=== PATIENT | female | born 1960 | race Caucasian/White ===

== ENCOUNTER 2016-10-14 15:55 | Emergency (ER) | payer OTHER ==
[2016-10-14 17:51] VITALS: RESP 20
[2016-10-14] MEDS ORDERED: BENZONATATE 100 MG CAP PO STA (17:56)
[2016-10-14] MEDS ORDERED: IPRATROPIUM-ALBUTEROL 3 ML NEB INHALATION STA (17:57)
[2016-10-14 18:36] LABS: Appearance,Urine Clear (Clear); Bilirubin,Urine Negative (Negative); Glucose,Urine (UA) Negative (Negative); Ketones,Urine Negative (Negative); Leukocyte Esterase,Urine Negative (Negative); Nitrite,Urine Negative (Negative); PH, Urine 5.5 (5.0-8.0); Protein,Urine Negative (Negative); Specific Gravity,Urine 1.009 (1.001-1.035); UA Billing (MACRO vs. MICRO) CHEM; Urobilinogen,Urine <2.0 mg/dL (<2.0)
[2016-10-14 18:45] LABS: ALT 29 U/L (9-52); AST 18 U/L (14-36); Alkaline Phosphatase 69 U/L (38-126); Amylase 72 U/L (30-110); Anion Gap 14 mmol/L; Blood Urea Nitrogen 16 mg/dL (7-17); Calcium 10.4 mg/dL (8.4-10.2); Carbon Dioxide 28 mmol/L (22-30); Chloride 99 mmol/L (98-107); Glucose 129 mg/dL (74-99); Non-African American GFR(MDRD) >60 (>60 ml/min/1.73 sqM); Potassium 3.8 mmol/L (3.5-5.1); Sodium 141 mmol/L (137-145); Total Bilirubin 0.4 mg/dL (0.2-1.3); Total Protein 8.3 g/dL (6.3-8.2)
--- NOTE | 2016-10-14 18:47 | ED ---
General Adult HPI - General Chief complaint: Upper Respiratory Infection Stated complaint: SOB/right flank pain Time Seen by Provider: 10/14/16 17:49 Source: patient, RN notes reviewed Mode of arrival: ambulatory Limitations: no limitations - History of Present Illness Initial comments: 56-year-old female presents to emergency room with chief complaint of cough. Patient has had this continued cough for the past 2 months. Patient states that she feels as if she is having just this continued irritation and some pressure sputum production. Patient states she's having pain to the right side of the chest. Patient states that she has not had any fever chills with this. Patient states she has had diarrhea with it as well. Patient denies any fever or chills. Patient states that she was on antibiotics as well as steroids about 2 weeks ago and her symptoms have still continued even though she finished these. Patient states she was sent here by the urgent care today for further evaluation. Patient denies any recent fever, chills, back pain, abdominal pain, nausea vomiting, numbness or tingling, dysuria or hematuria, constipation or diarrhea, headaches or visual changes, or any other current symptoms. - Related Data Home Medications Medication Instructions Recorded Confirmed Albuterol Sulfate [Proair Hfa] 1 puff INHALATION RT-Q6H PRN 10/14/16 10/14/16 Ibuprofen [Motrin] 400 mg PO Q6HR PRN 10/14/16 10/14/16 clonazePAM [KlonoPIN] 0.25 mg PO HS 10/14/16 10/14/16 traZODone HCL 150 mg PO HS 10/14/16 10/14/16 valACYclovir [Valtrex] 500 mg PO DAILY 10/14/16 10/14/16 Previous Rx's Medication Instructions Recorded Benzonatate [Tessalon Perles] 100 mg PO TID #20 cap 10/14/16 Famotidine [Pepcid] 20 mg PO BID #30 tablet 10/14/16 Promethaz-Cod 6.25-10 mg/5 ml 5 ml PO Q4HR PRN #50 ml 10/14/16 [Phenergan with Codeine] Allergies Allergy/AdvReac Type Severity Reaction Status Date / Time No Known Allergies Allergy Verified 10/14/16 18:44 Review of Systems ROS Statement: Those systems with pertinent positive or pertinent negative responses have been documented in the HPI. ROS Other: All systems not noted in ROS Statement are negative. Past Medical History Additional Past Medical History / Comment(s): chronic neck and back pain ddd History of Any Multi-Drug Resistant Organisms: None Reported Past Surgical History: Back Surgery Past Psychological History: No Psychological Hx Reported Smoking Status: Never smoker Past Alcohol Use History: None Reported Past Drug Use History: None Reported General Exam - General Exam Comments Initial Comments: General: The patient is awake and alert, in no distress, and does not appear acutely ill. Eye: Pupils are equal, round and reactive to light, extra-ocular movements are intact; there is normal conjunctiva bilaterally. No signs of icterus. Ears, nose, mouth and throat: There are moist mucous membranes and no oral lesions. Neck: The neck is supple, there is no tenderness. Cardiovascular: There is a regular rate and rhythm. No murmur, rub or gallop is appreciated. Tenderness along the right lateral aspect of the chest wall. Respiratory: Lungs are clear to auscultation, respirations are non-labored, breath sounds are equal. No wheezes, stridor, rales, or rhonchi. Gastrointestinal: Soft, non-distended, non-tender abdomen without masses or organomegaly noted. There is no rebound or guarding present. No CVA tenderness. Bowel sounds are unremarkable. Back: There is no tenderness to palpation in the midline. There is no obvious deformity. No rashes noted. Musculoskeletal: Normal ROM, no tenderness, There is no pedal edema. There is no calf tenderness or swelling. Sensation intact. Pulses equal bilaterally 2+. Neurological: CN II-XII intact, There are no obvious motor or sensory deficits. Coordination appears grossly intact. Speech is normal. Skin: Skin is warm and dry and no rashes or lesions are noted. Psychiatric: Cooperative, appropriate mood & affect, normal judgment. Limitations: no limitations Course Vital Signs 10/14/16 10/14/16 10/14/16 16:17 17:47 18:36 Temperature 98.6 F Pulse Rate 83 80 Respiratory 18 20 Rate Blood Pressure 127/82 O2 Sat by Pulse 100 Oximetry 10/14/16 18:46 Temperature Pulse Rate 84 Respiratory Rate Blood Pressure O2 Sat by Pulse Oximetry Medical Decision Making - Medical Decision Making 56 yo female presents emergency Department chief complaint of right-sided chest pain associated with the cough. At this time the patient does appear to have a right-sided costochondritis is most likely due to the cough. This time Process Help. We'll Start Patient Presents for Home As Well As Pepcid at Home As Well As Phenergan with Codeine. We Discussed Follow-Up and We Did Give Her a doctor in the area. We discussed all the patient's questions. She stated that she understood and is in agreement with the plan. The patient will be discharged home at this time. - Lab Data Result diagrams: 10/14/16 18:25 10/14/16 18:25 Lab Results 10/14/16 10/14/16 10/14/16 Range/Units 18:25 18:25 18:25 WBC 9.0 (3.8-10.6) k/uL RBC 4.73 (3.80-5.40) m/uL Hgb 15.3 (11.4-16.0) gm/dL Hct 45.7 (34.0-46.0) % MCV 96.6 (80.0-100.0) fL MCH 32.3 (25.0-35.0) pg MCHC 33.4 (31.0-37.0) g/dL RDW 12.0 (11.5-15.5) % Plt Count 168 D (150-450) k/uL Neutrophils % 68 % Lymphocytes % 25 % Monocytes % 5 % Eosinophils % 1 % Basophils % 0 % Neutrophils # 6.1 (1.3-7.7) k/uL Lymphocytes # 2.2 (1.0-4.8) k/uL Monocytes # 0.5 (0-1.0) k/uL Eosinophils # 0.1 (0-0.7) k/uL Basophils # 0.0 (0-0.2) k/uL PT 10.6 (9.0-12.0) sec INR 1.1 (<1.1) APTT 20.5 L (22.0-30.0) sec D-Dimer 0.58 (<0.60) mg/L FEU Sodium 141 (137-145) mmol/L Potassium 3.8 (3.5-5.1) mmol/L Chloride 99 (98-107) mmol/L Carbon Dioxide 28 (22-30) mmol/L Anion Gap 14 mmol/L BUN 16 (7-17) mg/dL Creatinine 0.75 (0.52-1.04) mg/dL Est GFR (MDRD) Af Amer >60 (>60 ml/min/1.73 sqM) Est GFR (MDRD) Non-Af >60 (>60 ml/min/1.73 sqM) Glucose 129 H (74-99) mg/dL Plasma Lactic Acid Bernabe (0.7-2.0) mmol/L Calcium 10.4 H (8.4-10.2) mg/dL Total Bilirubin 0.4 (0.2-1.3) mg/dL AST 18 (14-36) U/L ALT 29 (9-52) U/L Alkaline Phosphatase 69 (38-126) U/L Total Protein 8.3 H (6.3-8.2) g/dL Albumin 4.9 (3.5-5.0) g/dL Amylase 72 (30-110) U/L Lipase 152 (23-300) U/L Urine Color Urine Appearance (Clear) Urine pH (5.0-8.0) Ur Specific [place] (1.001-1.035) Urine Protein (Negative) Urine Glucose (UA) (Negative) Urine Ketones (Negative) Urine Blood (Negative) Urine Nitrate (Negative) Urine Bilirubin (Negative) Urine Urobilinogen (<2.0) mg/dL Ur Leukocyte Esterase (Negative) 10/14/16 10/14/16 Range/Units 18:25 18:25 WBC (3.8-10.6) k/uL RBC (3.80-5.40) m/uL Hgb (11.4-16.0) gm/dL Hct (34.0-46.0) % MCV (80.0-100.0) fL MCH (25.0-35.0) pg MCHC (31.0-37.0) g/dL RDW (11.5-15.5) % Plt Count (150-450) k/uL Neutrophils % % Lymphocytes % % Monocytes % % Eosinophils % % Basophils % % Neutrophils # (1.3-7.7) k/uL Lymphocytes # (1.0-4.8) k/uL Monocytes # (0-1.0) k/uL Eosinophils # (0-0.7) k/uL Basophils # (0-0.2) k/uL PT (9.0-12.0) sec INR (<1.1) APTT (22.0-30.0) sec D-Dimer (<0.60) mg/L FEU Sodium (137-145) mmol/L Potassium (3.5-5.1) mmol/L Chloride (98-107) mmol/L Carbon Dioxide (22-30) mmol/L Anion Gap mmol/L BUN (7-17) mg/dL Creatinine (0.52-1.04) mg/dL Est GFR (MDRD) Af Amer (>60 ml/min/1.73 sqM) Est GFR (MDRD) Non-Af (>60 ml/min/1.73 sqM) Glucose (74-99) mg/dL Plasma Lactic Acid Bernabe 1.3 (0.7-2.0) mmol/L Calcium (8.4-10.2) mg/dL Total Bilirubin (0.2-1.3) mg/dL AST (14-36) U/L ALT (9-52) U/L Alkaline Phosphatase (38-126) U/L Total Protein (6.3-8.2) g/dL Albumin (3.5-5.0) g/dL Amylase (30-110) U/L Lipase (23-300) U/L Urine Color Light Yellow Urine Appearance Clear (Clear) Urine pH 5.5 (5.0-8.0) Ur Specific [place] 1.009 (1.001-1.035) Urine Protein Negative (Negative) Urine Glucose (UA) Negative (Negative) Urine Ketones Negative (Negative) Urine Blood Negative (Negative) Urine Nitrate Negative (Negative) Urine Bilirubin Negative (Negative) Urine Urobilinogen <2.0 (<2.0) mg/dL Ur Leukocyte Esterase Negative (Negative) 10/14/16 19:36 normal sinus rhythm 76 bpm, normal axis, no atopy, no S-T depressions or elevations, Disposition Clinical Impression: Cough, Costochondral chest pain Disposition: HOME SELF-CARE Condition: Stable Instructions: Costochondritis (ED) Additional Instructions: Please use medication as discussed. Please follow up with family doctor if symptoms have not improved over the next two days. Please return to the emergency room if your symptoms increase or worsen or for any other concerns. Prescriptions: Benzonatate [Tessalon Perles] 100 mg PO TID #20 cap Famotidine [Pepcid] 20 mg PO BID #30 tablet Promethaz-Cod 6.25-10 mg/5 ml [Phenergan with Codeine] 5 ml PO Q4HR PRN #50 ml PRN Reason: Cough Referrals: Celio Khan MD [Primary Care Provider] - 1-2 days Brittany Weston MD [STAFF PHYSICIAN] - 1-2 days Time of Disposition: 19:37
[2016-10-14 19:04] LABS: INR 1.1 (<1.1); Partial Thromboplastin Time 20.5 sec (22.0-30.0); Prothrombin Time 10.6 sec (9.0-12.0)
--- NOTE | 2016-10-14 19:05 | XR ---
EXAMINATION TYPE: XR chest 2V DATE OF EXAM: 10/14/2016 6:57 PM COMPARISON: 09/07/16 HISTORY: Chest pain TECHNIQUE: Frontal and lateral views of the chest are obtained. FINDINGS: There is no focal air space opacity. No evidence for pnuemothorax.No pleural effusion. The cardiac silhouette size is within normal limits. The osseous structures are grossly intact. IMPRESSION: 1. No acute cardiopulmonary process.
[2016-10-14 19:24] LABS: Basophils % (A) 0 %; CH 32.9; CHCM 34.2; Eosinophils # (A) 0.1 k/uL (0-0.7); Eosinophils % (A) 1 %; HCT 45.7 % (34.0-46.0); HDW 2.42; HGB 15.3 gm/dL (11.4-16.0); Luc # (Auto) 0.13; Luc % (Auto) 1; Lymphocytes # (A) 2.2 k/uL (1.0-4.8); Lymphocytes % (A) 25 %; MCH 32.3 pg (25.0-35.0); MCHC 33.4 g/dL (31.0-37.0); MCV 96.6 fL (80.0-100.0); Mean Platelet Volume 8.4; Monocytes # (A) 0.5 k/uL (0-1.0); Monocytes % (A) 5 %; Neutrophils # (A) 6.1 k/uL (1.3-7.7); Neutrophils % (A) 68 %; RBC 4.73 m/uL (3.80-5.40); WBC (Perox) 9.76
[2016-10-14 20:02] VITALS: BP 112/56; PULSE 88; TEMP 97.7
== END 2016-10-14 20:02 | disposition home or self-care (01) ==
LOC: EC 15:55
DX: R05 Cough (principal); R07.1 Chest pain on breathing; R19.7 Diarrhea, unspecified; G89.29 Other chronic pain; M54.2 Cervicalgia; M54.9 Dorsalgia, unspecified; R07.9 Chest pain, unspecified; Z79.899 Other long term (current) drug therapy; R06.02 Shortness of breath; R10.9 Unspecified abdominal pain
CPT/HCPCS: 36415; 71020; 80053; 81003; 82150; 83605; 83690; 85025; 85379; 85610; 85730; 87040; 87086; 93005; 94640; 99284

== ENCOUNTER → 2016-10-26 | Outpatient (CLI) | payer OTHER ==
--- NOTE | 2016-10-26 15:20 | CT ---
EXAMINATION TYPE: CT chest wo con DATE OF EXAM: 10/26/2016 2:57 PM COMPARISON: NONE HISTORY: Cough x 2 1/2 months. Right lower chest pain. CT DLP: 503.[address] of the chest was performed with lung and mediastinal window settings submitted. The la ck of contrast limits evaluation of the vascular, mediastinal and parenchymal structures including th e upper abdomen. LUNGS: The lungs are clear and free of infiltrate. No atelectasis. No pulmonary nodule or mass is de tected. No pleural effusion. No CT evidence of interstitial lung disease. MEDIASTINUM/NILESH: Thoracic aorta is of normal caliber with limited evaluation given lack of contrast . The heart is not enlarged. No evidence for mediastinal mass. No lymph nodes greater than 1cm. UPPER ABDOMEN: No significant abnormality is seen. OTHER: Bilateral breast implants are intact. No evidence for displaced rib fracture. IMPRESSION: 1. No significant abnormality.
== END | disposition home or self-care (01) ==
LOC: RADCTMAIN 14:39
PROVIDERS: ATTEND Family Medicine
DX: R05 Cough (principal)
CPT/HCPCS: 71250

== ENCOUNTER → 2018-07-13 | Outpatient (CLI) | payer MEDICARE ==
--- NOTE | 2018-07-13 11:44 | FL ---
EXAMINATION TYPE: FL barium swallow DATE OF EXAM: 07/13/2018 CLINICAL HISTORY: Dysphagia. Feeling something getting stuck in throat for one year per patient. TECHNIQUE: A double contrast esophagram is performed utilizing air and barium. A total of 53 second s of fluoroscopic time was utilized during procedure. 41 spot images are saved during procedure. COMPARISON: CT chest October 26, 2016. MRI cervical spine May 27, 2018 FINDINGS: The esophagus shows normal motility and emptying into the stomach. No evidence of hiatal h ernia or stricture noted. No diverticulum is present. No significant gastroesophageal reflux was seen during real time performance of this study. IMPRESSION: No significant abnormality is seen to account for patient's symptoms.
== END | disposition home or self-care (01) ==
LOC: RADFLWHC 10:53
PROVIDERS: ATTEND Otolaryngology
DX: R13.10 Dysphagia, unspecified (principal)
CPT/HCPCS: 74220

== ENCOUNTER → 2018-07-20 | Outpatient (CLI) | payer MEDICARE ==
--- NOTE | 2018-07-20 14:05 | US ---
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 difficulty swallowing for years, h/o enlarged node on le ft neck per patient, assess nodes today Bilateral soft tissue scan of the neck. Largest node seen bilaterally was on the left = 1.3 x 0.7 x 0 .3cm with fatty hilum and mild vascularity seen. IMPRESSION: Benign-appearing lymph nodes noted along the anterior neck bilaterally, previously identified enlarge d node left neck has decreased in size in the interval
--- NOTE | 2018-07-28 11:27 | MM ---
Reason for exam: screening (asymptomatic). Last mammogram was performed 1 year and 2 months ago. History: Patient is postmenopausal. Saline implants in both breasts, 2006. Benign excisional biopsy of the right breast, 1997. Physical Findings: A clinical breast exam by your physician is recommended on an annual basis and results should be correlated with mammographic findings. MG 3D Screen Mammo Imp/Cad Bilateral CC, MLO, and ID view(s) were taken. Prior study comparison: May 26, 2017, mammogram, performed at [facility]. February 16, 2013, mammogram, performed at [facility]. The breast tissue is extremely dense which could obscure a lesion on mammography. Stable benign calcifications. Bilateral implant are intact. ASSESSMENT: Benign, BI-RAD 2 RECOMMENDATION: Routine screening mammogram of both breasts in 1 year.
== END | disposition home or self-care (01) ==
LOC: RADUSWWP 09:00
PROVIDERS: ATTEND Family Medicine
DX: Z12.31 Encounter for screening mammogram for malignant neoplasm of breast (principal); F45.8 Other somatoform disorders
CPT/HCPCS: 76536; 77063; 77067

== ENCOUNTER → 2019-07-31 | Outpatient (CLI) | payer MEDICARE ==
--- NOTE | 2019-07-31 17:00 | MR ---
MRI CERVICAL SPINE: CLINICAL HISTORY: Osteoarthritis and chronic pain per order. Headaches with neck pain for over 15 yea rs causing pain or weakness into both arms and fingers per patient. TECHNIQUE: Multiplanar, multisequence imaging of the cervical spine is performed without and with IV contrast, 5.5 cc of gadolinium was given intravenously. COMPARISON: MRI cervical spine May 27, 2018. FINDINGS: Sagittal images of the cervical spine show the craniocervical junction to remain within nor mal limits. The cervical and upper thoracic spinal cord remains normal in caliber and signal. Verte bral alignment is stable. There is grade 1 anterolisthesis of C3 on C4 and grade 1 retrolisthesis of C4 on C5 and C5 on C6. The vertebral body heights remain normal. Moderate disc space narrowing C4-C 5 and C5-C6 levels is redemonstrated. Heterogeneous Modic type II endplate changes centered posterior C6-C7 level are again seen. No suspicious postcontrast enhancement. Axial images show the C2-C3 level to remain within normal limits. Axial images at C3-C4 level redemonstrated right foraminal spur disc complex causing asymmetric moder ate right-sided neural foraminal narrowing axial image 35 and sagittal image 10, this is not signific antly changed in retrospect from prior study. Axial images at C4-C5 level show posterior lobulated disc protrusion and right foraminal spur disc co mplex effacing anterior thecal sac and causing asymmetric moderate right-sided neural foraminal narro wing. No significant change from prior. Axial images at C5-C6 level show lobulated posterior and right foraminal disc protrusion with spurrin g effacing anterior thecal sac and causing advanced right-sided neural foraminal narrowing axial imag e 21 not significant changed from prior. Axial images at C6-C7 show mild broad disc bulge minimally effacing anterior thecal sac with mild felipe ateral neural foraminal narrowing, no significant change from prior. Axial images at C7-T1 level are within normal limits. IMPRESSION: Multilevel level spondylolisthesis and degenerative changes most prominent mid cervical l evels as detailed above. No significant change or progression from prior MRI noted.
== END | disposition home or self-care (01) ==
LOC: RADMRIMAIN 15:28
PROVIDERS: ATTEND Internal Medicine
DX: M43.12 Spondylolisthesis, cervical region (principal); G89.29 Other chronic pain
CPT/HCPCS: 72156; A9585

== ENCOUNTER → 2019-12-15 | Outpatient (CLI) | payer MEDICARE ==
--- NOTE | 2019-12-19 08:14 | USB ---
Reason for exam: additional evaluation requested from abnormal screening. History: Patient is postmenopausal. Saline implants in both breasts, 2007. Benign excisional biopsy of the right breast, 1997. Physical Findings: Nurse Summary: 1cm movable 2 o'clock (nurse terence). US Breast Workup Limited LT Left limited breast ultrasound including focal area of concern, retroareolar and axilla demonstrates no cystic or solid lesion seen. These results were verbally communicated with the patient and result sheet given to the patient on 12/15/19. ASSESSMENT: Negative, BI-RAD 1 RECOMMENDATION: Routine screening mammogram of both breasts. Manage on a clinical basis with regard to nipple inversion.
== END | disposition home or self-care (01) ==
LOC: RADUSWWP 13:07
PROVIDERS: ATTEND Internal Medicine
DX: R92.8 Other abnormal and inconclusive findings on diagnostic imaging of breast (principal)

== ENCOUNTER → 2020-04-19 | Outpatient (CLI) | payer MEDICARE ==
--- NOTE | 2020-04-19 17:49 | CT ---
EXAMINATION TYPE: CT sinus wo con DATE OF EXAM: 04/19/2020 COMPARISON: None HISTORY: Chronic sinusitis, headache CT DLP: 566 mGycm. Automated Exposure Control for Dose Reduction was Utilized. TECHNIQUE: CT scan of the sinuses is performed without contrast, axial images are obtained, coronal r eformatted images are also reviewed. FINDINGS: The frontal and ethmoid sinuses are well-aerated. There is small mucosal polyp versus reten tion cyst of the right sphenoid sinus. There is mucosal obstruction of the bilateral sphenoid ostia. There is mucosal thickening of the bilateral maxillary sinuses, left greater than right. There is muc osal occlusion of the bilateral frontoethmoidal recesses, with narrowing on the left. The ostiomeatal complex is patent bilaterally on the coronal images. There is rightward deviation of the anterior bony septum Visualized portion of mastoid air cells show no abnormal opacification. The globes are symmetric felipe aterally. IMPRESSION: 1. Paranasal sinus disease as above. 2. Rightward deviation of the anterior bony septum.
== END | disposition home or self-care (01) ==
LOC: RADCTMAIN 14:03
PROVIDERS: ATTEND Otolaryngology
DX: J32.9 Chronic sinusitis, unspecified (principal); J34.2 Deviated nasal septum
CPT/HCPCS: 70486

== ENCOUNTER → 2020-04-30 | Outpatient (CLI) | payer MEDICARE | END | disposition home or self-care (01) | LOC: LABWHC1 14:27 | PROVIDERS: ATTEND Otolaryngology | DX: J30.89 Other allergic rhinitis (principal) | CPT/HCPCS: 36415 ==

== ENCOUNTER 2020-08-23 15:09 | Emergency (ER) | payer MEDICARE ==
[2020-08-23 15:17] VITALS: TEMP 98.5
--- NOTE | 2020-08-23 15:44 | ED ---
Chest Pain HPI - General Chief Complaint: Chest Pain Stated Complaint: +COVID, Diff Breathing Time Seen by Provider: 08/23/20 15:22 Source: patient Mode of arrival: wheelchair Limitations: no limitations - History of Present Illness Initial Comments: 60-year-old male presenting to the emergency department with a chief complaint of chest pressure. Patient states 7 days ago she was diagnosed with Covid and since then she has continued to develop generalized body aches with URI symptoms. Patient states yesterday she also started to feel some chest pr essure/heaviness and cause her to have shortness of breath. Patient reports feeling like she cannot take a full deep breath. She also reports a productive cough with white sputum production. She does report chills but no fevers. Denies nausea vomiting diarrhea. Denies any abdominal pain. Denies any headaches. Denies any loss of taste or smell. - Related Data Home Medications Medication Instructions Recorded Confirmed Albuterol Sulfate [Proair Hfa] 1 puff INHALATION RT-Q6H PRN 10/14/16 08/23/20 Budesonide/Formoterol Fumarate 2 puff INHALATION RT-QID PRN 08/23/20 08/23/20 [Symbicort 160-4.5 Mcg Inhaler] clonazePAM 1 mg PO HS 08/23/20 08/23/20 traZODone HCL [Desyrel] 150 mg PO HS 08/23/20 08/23/20 Allergies Allergy/AdvReac Type Severity Reaction Status Date / Time almond Allergy Unknown Verified 08/23/20 18:48 egg Allergy Unknown Verified 08/23/20 18:48 mustard Allergy Unknown Verified 08/23/20 18:48 Review of Systems ROS Statement: Those systems with pertinent positive or pertinent negative responses have been documented in the HPI. ROS Other: All systems not noted in ROS Statement are negative. EKG Findings - EKG Comments: EKG Findings:: Sinus rhythm. Ventricular rate 73, TX 138, QRS 78, QTC 449. Past Medical History Additional Past Medical History / Comment(s): chronic neck and back pain ddd, covid History of Any Multi-Drug Resistant Organisms: None Reported Past Surgical History: Back Surgery Past Psychological History: No Psychological Hx Reported Smoking Status: Never smoker Past Alcohol Use History: None Reported Past Drug Use History: None Reported General Exam Limitations: no limitations General appearance: alert, in no apparent distress Head exam: Present: atraumatic, normocephalic, normal inspection Eye exam: Present: normal appearance, PERRL, EOMI Pupils: Present: normal accommodation ENT exam: Present: normal exam, normal oropharynx, mucous membranes moist, TM's normal bilaterally, normal external ear exam Neck exam: Present: normal inspection, full ROM. Absent: tenderness Respiratory exam: Present: normal lung sounds bilaterally. Absent: respiratory distress, wheezes, rales, rhonchi, stridor, chest wall tenderness, accessory muscle use, decreased breath sounds, prolonged expiratory Cardiovascular Exam: Present: regular rate, normal rhythm, normal heart sounds. Absent: systolic murmur, diastolic murmur GI/Abdominal exam: Present: soft. Absent: distended, tenderness, guarding, rebound Extremities exam: Present: normal inspection, full ROM, normal capillary refill. Absent: tenderness, pedal edema, joint swelling, calf tenderness Back exam: Present: normal inspection, full ROM. Absent: tenderness, CVA te nderness (R), CVA tenderness (L), muscle spasm, paraspinal tenderness, vertebral tenderness Neurological exam: Present: alert, oriented X3, normal gait Psychiatric exam: Present: normal affect, normal mood. Absent: depressed, agitated Skin exam: Present: warm, dry, intact, normal color Course Vital Signs 08/23/20 08/23/20 08/23/20 15:14 18:00 18:56 Temperature 98.5 F Pulse Rate 78 79 74 Respiratory 18 16 16 Rate Blood Pressure 119/77 113/84 123/71 O2 Sat by Pulse 100 96 97 Oximetry Chest Pain MDM - MDM 60-year-old female presenting to the emergency department with a chief complaint shortness of breath. Patient is currently Covid positive. Physical examination reveals mild shortness of breath but her vitals are remaining stable. Oxygen saturation is above 95%. CBC CMP and coags within normal limits. Initial troponin is negative. D-dimer is also negative. Chest x-ray reveals no acute processes. She denies chest pain. Patient was advised to follow with the primary care physician. Strict return parameters were thoroughly discussed the patient is understanding and agreeable. Case discussed with physician. Disposition Clinical Impression: Shortness of breath Disposition: HOME SELF-CARE Condition: Stable Instructions (If sedation given, give patient instructions): Chest Pain (ED) Additional Instructions: Follow-up with her primary care physician. Continue using your inhalers. Take Tylenol if she developed a fever. Self isolate. Return to emergency department if symptoms worsen. Is patient prescribed a controlled substance at d/c from ED?: No Referrals: Kris Odell MD [Primary Care Provider] - 1-2 days Time of Disposition: 18:36
[2020-08-23 16:33] LABS: Basophils # (A) 0.1 k/uL (0-0.2); Basophils % (A) 1 %; Eosinophils # (A) 0.1 k/uL (0-0.7); Eosinophils % (A) 3 %; HCT 39.1 % (34.0-46.0); HGB 13.7 gm/dL (11.4-16.0); Lymphocytes # (A) 1.5 k/uL (1.0-4.8); Lymphocytes % (A) 33 %; MCH 32.3 pg (25.0-35.0); MCHC 35.1 g/dL (31.0-37.0); MCV 92.2 fL (80.0-100.0); Mean Platelet Volume 7.2; Monocytes # (A) 0.2 k/uL (0-1.0); Monocytes % (A) 5 %; Neutrophils # (A) 2.5 k/uL (1.3-7.7); Neutrophils % (A) 56 %; Platelet Count 216 k/uL (150-450); RBC 4.24 m/uL (3.80-5.40); RDW 11.5 % (11.5-15.5); WBC 4.5 k/uL (3.8-10.6)
[2020-08-23 16:46] LABS: ALT 17 U/L (4-34); AST 23 U/L (14-36); African American GFR (CKD) 79 (>60 ml/min/1.73 sqM); Alkaline Phosphatase 54 U/L (38-126); Anion Gap 8 mmol/L; Blood Urea Nitrogen 13 mg/dL (7-17); Carbon Dioxide 29 mmol/L (22-30); Chloride 102 mmol/L (98-107); Glucose 98 mg/dL (74-99); LDH 417 U/L (313-618); Non-African American GFR(CKD) 68 (>60 ml/min/1.73 sqM); Sodium 139 mmol/L (137-145); Total Bilirubin 0.3 mg/dL (0.2-1.3); Total Protein 8.3 g/dL (6.3-8.2)
--- NOTE | 2020-08-23 16:54 | XR ---
EXAMINATION TYPE: XR chest 1V portable DATE OF EXAM: 08/23/2020 COMPARISON: 10/14/2016 HISTORY: Chest pain TECHNIQUE: FINDINGS: Heart and mediastinum are normal. Lungs are clear. Diaphragm is normal. Bony thorax is inta ct. There is mild pulmonary hyperinflation. There are chest leads. IMPRESSION: There is probably some COPD. No acute lung disease. There is clearing of the mild subsegm ental atelectasis left lung base compared to old exam.
[2020-08-23 17:02] LABS: D-Dimer 0.49 mg/L FEU (<0.60)
[2020-08-23 17:04] LABS: Partial Thromboplastin Time 20.5 sec (22.0-30.0)
[2020-08-23 17:12] LABS: C Reactive Protein <5.0 mg/L (<10.0)
[2020-08-23] MEDS ORDERED: SODIUM CHLORIDE 0.9% 1,000 ML IV STA (17:46)
[2020-08-23 18:01] VITALS: RESP 16
[2020-08-23 18:57] VITALS: BP 123/71; PULSE 74
[2020-08-24 00:09] LABS: Ferritin 132.5 ng/mL (10.0-291.0)
== END 2020-08-23 18:56 | disposition home or self-care (01) ==
LOC: EC 15:09
DX: U07.1 COVID-19 (principal); G89.29 Other chronic pain; M54.2 Cervicalgia; M54.9 Dorsalgia, unspecified; Z79.899 Other long term (current) drug therapy; Z79.51 Long term (current) use of inhaled steroids; Z91.018 Allergy to other foods; Z91.012 Allergy to eggs
CPT/HCPCS: 36415; 71045; 80053; 82728; 83605; 83615; 83735; 84145; 84484; 85025; 85379; 85610; 85730; 86140; 87040; 93005; 99285

== ENCOUNTER → 2021-03-25 | Outpatient (CLI) | payer MEDICARE ==
--- NOTE | 2021-03-26 09:39 | MM ---
Reason for exam: clinical finding. Last mammogram was performed 1 year and 4 months ago. History: Patient is postmenopausal. Saline implants in both breasts, 2006. Benign excisional biopsy of the right breast, 1997. Indicated problem(s): lump or thickening in the left breast. Physical Findings: Nurse Summary: 0.5cm nodule in the left breast at 3 o'clock (nurse mj). MG 3D Diag Mammo Imp W/Cad CAMILA Bilateral CC, MLO, and ID view(s) were taken. Prior study comparison: December 05, 2019, bilateral MG 3d screen mammo imp/cad. July 20, 2018, bilateral MG 3d screen mammo imp/cad. The breast tissue is extremely dense which could obscure a lesion on mammography. Left lump at site of oil cyst. Inverted nipple left breast. Benign calcifications. Bilateral retropectoral saline implants with multiple folds relatively stable. Ultrasound of left breast recommended. These results were verbally communicated with the patient and result sheet given to the patient on 03/25/21. ASSESSMENT: Incomplete: need additional imaging evaluation, BI-RAD 0 RECOMMENDATION: Ultrasound of the left breast.
--- NOTE | 2021-03-26 09:41 | USB ---
Reason for exam: additional evaluation requested from abnormal screening. History: Patient is postmenopausal. Saline implants in both breasts, 2007. Benign excisional biopsy of the right breast, 1997. US Breast Limited LT Left limited breast ultrasound including focal area of concern, retroareolar and axilla demonstrates a 8 x 8 x 8mm oval, cystic oil cyst at 3 o'clock BB. Benign. Left retroareolar at site of inversion, no cyst, mass or ductal dilation. These results were verbally communicated with the patient and result sheet given to the patient on 03/25/21. ASSESSMENT: Benign, BI-RAD 2 RECOMMENDATION: Routine screening mammogram of both breasts in 1 year.
== END | disposition home or self-care (01) ==
LOC: RADMAMWWP 15:04
PROVIDERS: ATTEND Obstetrics & Gynecology
DX: N60.02 Solitary cyst of left breast (principal); N63.20 Unspecified lump in the left breast, unspecified quadrant; Z78.0 Asymptomatic menopausal state
CPT/HCPCS: 77066; 76642; G0279; 77062

== ENCOUNTER 2022-01-27 11:27 | Emergency (ER) | payer MEDICARE ==
[2022-01-27] MEDS ORDERED: diphenhydrAMINE 50 MG/ML 1 ML VIAL IVP STA (13:12)
[2022-01-27] MEDS ORDERED: SODIUM CHLORIDE 0.9% 1,000 ML IV ONE (13:12)
[2022-01-27] MEDS ORDERED: METOCLOPRAMIDE 5 MG/ML 2 ML VIAL IVP STA (13:12)
--- NOTE | 2022-01-27 13:22 | ED ---
General Adult HPI - General Chief complaint: Headache Stated complaint: neuro issue Time Seen by Provider: 01/27/22 12:55 Source: patient, RN notes reviewed, old records reviewed Mode of arrival: wheelchair Limitations: no limitations - History of Present Illness Initial comments: This is a 61-year-old female presents emergency Department complaining of a four-day headache. Patient states it's on the right side of her head and even goes into her jaw little bit. Patient states she has had migraines in the past but this is a little bit worse and atypical. Patient states she's had no nausea but she is photophobic. Patient denies any numbness or focal weakness. Patient denies any slurred speech or facial droop. Patient states she feels a little dizzy but she's not having issues walking. Patient states [id number] medications have not helped. - Related Data Home Medications Medication Instructions Recorded Confirmed clonazePAM 1 mg PO HS 08/23/20 01/27/22 Levocetirizine Dihydrochloride 5 mg PO HS 01/27/22 01/27/22 [Xyzal] traZODone HCL [Desyrel] 200 mg PO HS 01/27/22 01/27/22 Allergies Allergy/AdvReac Type Severity Reaction Status Date / Time almond Allergy Unknown Verified 01/27/22 13:37 egg Allergy Unknown Verified 01/27/22 13:37 gluten Allergy Unknown Verified 01/27/22 13:37 mustard Allergy Unknown Verified 01/27/22 13:37 nickel Allergy Unknown Verified 01/27/22 13:37 Review of Systems ROS Statement: Those systems with pertinent positive or pertinent negative responses have been documented in the HPI. ROS Other: All systems not noted in ROS Statement are negative. Past Medical History Additional Past Medical History / Comment(s): chronic neck and back pain ddd, covid History of Any Multi-Drug Resistant Organisms: None Reported Past Surgical History: Back Surgery Past Psychological History: No Psychological Hx Reported Smoking Status: Never smoker Past Alcohol Use History: None Reported Past Drug Use History: None Reported General Exam - General Exam Comments Initial Comments: GENERAL: Patient is well-developed and well-nourished. Patient is nontoxic and well- hydrated and is in mild distress. ENT: Neck is soft and supple. No significant lymphadenopathy is noted. Oropharynx is clear. Moist mucous membranes. Neck has full range of motion without eliciting any pain. EYES: The sclera were anicteric and conjunctiva were pink and moist. Extraocular movements were intact and pupils were equal round and reactive to light. Eyelids were unremarkable. PULMONARY: Unlabored respirations. Good breath sounds bilaterally. No audible rales rhonchi or wheezing was noted. CARDIOVASCULAR: There is a regular rate and rhythm without any murmurs gallops or rubs. ABDOMEN: Soft and nontender with normal bowel sounds. SKIN: Skin is clear with no lesions or rashes and otherwise unremarkable. NEUROLOGIC: Patient is alert and oriented x3. Cranial nerves II through XII are grossly int act. Motor and sensory are also intact. Normal speech, volume and content. Symmetrical smile. Patient has an NIH of 0 MUSCULOSKELETAL: Normal extremities with adequate strength and full range of motion. No lower extremity swelling or edema. No calf tenderness. LYMPHATICS: No significant lymphadenopathy is noted PSYCHIATRIC: Normal psychiatric evaluation. Limitations: no limitations Course Vital Signs 01/27/22 01/27/22 11:28 15:07 Temperature 97.9 F 97.7 F Pulse Rate 82 58 L Respiratory 16 18 Rate Blood Pressure 110/71 107/60 O2 Sat by Pulse 97 100 Oximetry Medical Decision Making - Medical Decision Making EKG shows sinus rhythm at 64 bpm OH interval is 131 QRS is 86 QT interval 386 QTC is 396. Patient's EKG shows no ST segment elevation there is some slight ST segment depression in the inferior leads. In precordial leads V3 V4 [address] of the brain showed no acute abnormality. Patient received Benadryl and Reglan and after the CAT scan Toradol. Patient was feeling considerably better stated she was hungry and wanted to be discharged home so she could eat. - Lab Data Result diagrams: 01/27/22 13:45 01/27/22 13:45 Lab Results 01/27/22 01/27/22 01/27/22 Range/Units 13:45 13:45 13:45 WBC 6.6 (3.8-10.6) k/uL RBC 4.31 (3.80-5.40) m/uL Hgb 13.8 (11.4-16.0) gm/dL Hct 41.9 (34.0-46.0) % MCV 97.1 (80.0-100.0) fL MCH 32.0 (25.0-35.0) pg MCHC 32.9 (31.0-37.0) g/dL RDW 11.8 (11.5-15.5) % Plt Count 272 (150-450) k/uL MPV 6.8 Neutrophils % 66 % Lymphocytes % 25 % Monocytes % 5 % Eosinophils % 2 % Basophils % 1 % Neutrophils # 4.4 (1.3-7.7) k/uL Lymphocytes # 1.6 (1.0-4.8) k/uL Monocytes # 0.3 (0-1.0) k/uL Eosinophils # 0.1 (0-0.7) k/uL Basophils # 0.0 (0-0.2) k/uL Sodium 139 (137-145) mmol/L Potassium 3.8 (3.5-5.1) mmol/L Chloride 101 (98-107) mmol/L Carbon Dioxide 31 H (22-30) mmol/L Anion Gap 7 mmol/L BUN 13 (7-17) mg/dL Creatinine 0.68 (0.52-1.04) mg/dL Est GFR (CKD-EPI)AfAm >90 (>60 ml/min/1.73 sqM) Est GFR (CKD-EPI)NonAf >90 (>60 ml/min/1.73 sqM) Glucose 92 (74-99) mg/dL Calcium 9.5 (8.4-10.2) mg/dL Magnesium 1.9 (1.6-2.3) mg/dL Total Bilirubin 0.6 (0.2-1.3) mg/dL AST 23 (14-36) U/L ALT 18 (4-34) U/L Alkaline Phosphatase 48 (38-126) U/L Troponin I <0.012 (0.000-0.034) ng/mL Total Protein 7.7 (6.3-8.2) g/dL Albumin 4.4 (3.5-5.0) g/dL Coronavirus (PCR) (Not Detectd) 01/27/22 Range/Units 14:21 WBC (3.8-10.6) k/uL RBC (3.80-5.40) m/uL Hgb (11.4-16.0) gm/dL Hct (34.0-46.0) % MCV (80.0-100.0) fL MCH (25.0-35.0) pg MCHC (31.0-37.0) g/dL RDW (11.5-15.5) % Plt Count (150-450) k/uL MPV Neutrophils % % Lymphocytes % % Monocytes % % Eosinophils % % Basophils % % Neutrophils # (1.3-7.7) k/uL Lymphocytes # (1.0-4.8) k/uL Monocytes # (0-1.0) k/uL Eosinophils # (0-0.7) k/uL Basophils # (0-0.2) k/uL Sodium (137-145) mmol/L Potassium (3.5-5.1) mmol/L Chloride (98-107) mmol/L Carbon Dioxide (22-30) mmol/L Anion Gap mmol/L BUN (7-17) mg/dL Creatinine (0.52-1.04) mg/dL Est GFR (CKD-EPI)AfAm (>60 ml/min/1.73 sqM) Est GFR (CKD-EPI)NonAf (>60 ml/min/1.73 sqM) Glucose (74-99) mg/dL Calcium (8.4-10.2) mg/dL Magnesium (1.6-2.3) mg/dL Total Bilirubin (0.2-1.3) mg/dL AST (14-36) U/L ALT (4-34) U/L Alkaline Phosphatase (38-126) U/L Troponin I (0.000-0.034) ng/mL Total Protein (6.3-8.2) g/dL Albumin (3.5-5.0) g/dL Coronavirus (PCR) Not Detected (Not Detectd) Disposition Clinical Impression: Headache Disposition: HOME SELF-CARE Instructions (If sedation given, give patient instructions): Acute Headache (ED) Is patient prescribed a controlled substance at d/c from ED?: No Referrals: Kris Odell MD [Primary Care Provider] - 1-2 days Time of Disposition: 15:35
[2022-01-27 13:48] LABS: Basophils % (A) 1 %; Eosinophils # (A) 0.1 k/uL (0-0.7); Eosinophils % (A) 2 %; HCT 41.9 % (34.0-46.0); HGB 13.8 gm/dL (11.4-16.0); Lymphocytes # (A) 1.6 k/uL (1.0-4.8); Lymphocytes % (A) 25 %; MCHC 32.9 g/dL (31.0-37.0); MCV 97.1 fL (80.0-100.0); Mean Platelet Volume 6.8; Monocytes # (A) 0.3 k/uL (0-1.0); Monocytes % (A) 5 %; Neutrophils # (A) 4.4 k/uL (1.3-7.7); Neutrophils % (A) 66 %; Platelet Count 272 k/uL (150-450); RBC 4.31 m/uL (3.80-5.40); RDW 11.8 % (11.5-15.5); WBC 6.6 k/uL (3.8-10.6)
[2022-01-27 13:57] LABS: ALT 18 U/L (4-34); AST 23 U/L (14-36); African American GFR (CKD) >90 (>60 ml/min/1.73 sqM); Albumin 4.4 g/dL (3.5-5.0); Alkaline Phosphatase 48 U/L (38-126); Anion Gap 7 mmol/L; Blood Urea Nitrogen 13 mg/dL (7-17); Calcium 9.5 mg/dL (8.4-10.2); Carbon Dioxide 31 mmol/L (22-30); Chloride 101 mmol/L (98-107); Glucose 92 mg/dL (74-99); Magnesium 1.9 mg/dL (1.6-2.3); Non-African American GFR(CKD) >90 (>60 ml/min/1.73 sqM); Potassium 3.8 mmol/L (3.5-5.1); Sodium 139 mmol/L (137-145); Total Bilirubin 0.6 mg/dL (0.2-1.3); Total Protein 7.7 g/dL (6.3-8.2)
--- NOTE | 2022-01-27 13:58 | CT ---
EXAMINATION TYPE: CT brain wo con DATE OF EXAM: 01/27/2022 COMPARISON: None HISTORY: Headache. CT DLP: 1096.4 mGycm Automated exposure control for dose reduction was used. FINDINGS: Mild degenerative change of the greater frontal lobe component. No acute intracranial hemorrhage or m ass effect. No midline shift. Calvarium intact. Orbits symmetric. Sinuses clear. Craniocervical junction maintained. Sella turcica has a normal appea abby. IMPRESSION: NO ACUTE PROCESS IF SYMPTOMS PERSIST CONSIDER MRI.
[2022-01-27] MEDS ORDERED: KETOROLAC 15 MG/ML 1 ML VIAL IVP STA (14:06)
[2022-01-27 15:09] VITALS: BP 107/60; PULSE 58; RESP 18; TEMP 97.7
== END 2022-01-27 15:48 | disposition home or self-care (01) ==
LOC: EC 11:27
DX: R51.9 Headache, unspecified (principal); Z20.822 Contact with and (suspected) exposure to COVID-19; Z91.018 Allergy to other foods; Z91.012 Allergy to eggs; Z91.048 Other nonmedicinal substance allergy status
CPT/HCPCS: 36415; 93005; 80053; 83735; 84484; 85025; 87635; 70450; 99284; 96374; 96361; 96375; J1200; J2765; J1885

== ENCOUNTER → 2022-03-02 | Outpatient (CLI) | payer MEDICARE ==
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
== END | disposition home or self-care (01) ==
LOC: RADMRIMAIN 15:36
PROVIDERS: ATTEND Orthopaedic Surgery Orthopaedic Surgery of the Spine
DX: M50.121 Cervical disc disorder at C4-C5 level with radiculopathy (principal); M50.122 Cervical disc disorder at C5-C6 level with radiculopathy; M47.22 Other spondylosis with radiculopathy, cervical region; M25.78 Osteophyte, vertebrae
CPT/HCPCS: 72141

== ENCOUNTER → 2022-03-31 | Outpatient (CLI) | payer MEDICARE ==
--- NOTE | 2022-03-31 17:43 | BD ---
EXAMINATION TYPE: Axial Bone Density DATE OF EXAM: 03/31/2022 COMPARISON: NONE CLINICAL HISTORY: 61 years year old Female. ICD-10 CODE: M85.89 Disorder of bone Height: 5 FT 5 1/2 IN Weight: 122 FRAX RISK QUESTIONS: Alcohol (3 or more units per day): NO Family History (Parent hip fracture): NO Glucocorticoids (More than 3mos): NO (Ex: prednisone, prednisolone, methylprednisolone, dexamethasone, and hydrocortisone). History of Fracture in Adulthood: YES Secondary Osteoporosis: 1. Type 1 Diabetes: NO 2. Hyperthyroidism: NO 3. Menopause before 45: YES 4. Malnutrition: NO 5. Chronic liver disease: NO Rheumatoid Arthritis: NO Current Tobacco Use: NO RISK FACTORS HISTORY OF: Surgery to Spine/Hip(right/left)/Wrist (right/left): LUMBAR SURG X 3 When: 1999 Family History of Osteoporosis: YES Active: NO Diet low in dairy products/other sources of calcium: NO Postmenopausal woman: YES Take estrogen and/or progesterone medications: NO LONGER TAKES Lost more than 2 inches in height since high school: NO Frequent falls: NO Poor Health: GOOD Hyperparathyroidism: NO Adrenal Insufficiency: NO MEDICATIONS: Additional Medications: NONE Additional History: EXAM MEASUREMENTS: Bone mineral density about the R hip (g/cm2): 0.581 Bone mineral density about the L hip (g/cm2): 0.637 T Score values are as follows: -----R Neck: -3.3 -----L Neck: -2.9 -----R Total: -3.2 -----L Total: -3.2 BASELINE Bone mineral density about the L Wrist (g/cm2): 0.634 T Score values are as follows: -----Dist. R+U: -1.7 -----Prox. R+U: -0.4 -----Radius total: -0.7 BASELINE FRAX%s: The graph provided illustrates a 15.8 % chance for a major osteoporotic fx and a 5.5 % chance for the hips probability for fx in 10 years time. IMPRESSION: Osteoporosis (T Score less than -2.5). There is increased fracture risk and therapy is usually indicated based on age. Re-Screen 1-2 years. NOTE: T-SCORE=SD OF THE YOUNG ADULT MEAN.
--- NOTE | 2022-04-01 14:55 | MM ---
Reason for Exam: Screening (asymptomatic). Last mammogram was performed 1 year(s) and 1 month(s) ago. Patient History: Menarche at age 13. First Full-Term at age 23. Postmenopausal. 1997, Benign Excisional Biopsy on the right side. 2006, Bilateral Implants. Risk Values: Shantel 5 year model risk: 1.6%. NCI Lifetime model risk: 7.5%. Prior Study Comparison: 07/20/2018 Bilateral Screening Mammogram, [facility]. 12/05/2019 Bilateral Screening Mammogram, [facility]. 03/25/2021 Bilateral Diagnostic Mammogram, [facility]. Tissue Density: The breast tissue is extremely dense which could obscure a lesion on mammography. Findings: Analyzed By CAD. Subpectoral bilateral breast implants are redemonstrated. Few scattered benign-appearing round calcifications throughout the bilateral breasts are again seen. Vascular calcification in the left breast outer aspect is redemonstrated. There is no suspicious group of microcalcifications or new suspicious mass in either breast. Overall Assessment: Benign, BI-RAD 2 Management: Screening Mammogram of both breasts in 1 year. Some advise bilateral breast ultrasound surveillance in patients with background dense tissue. Electronically signed and approved by: Joao Nelson M.D.
== END | disposition home or self-care (01) ==
LOC: RADBDWWP 14:02
PROVIDERS: ATTEND Obstetrics & Gynecology
DX: Z12.31 Encounter for screening mammogram for malignant neoplasm of breast (principal); M81.0 Age-related osteoporosis without current pathological fracture; Z78.0 Asymptomatic menopausal state
CPT/HCPCS: 77063; 77067; 77080

== ENCOUNTER → 2022-04-28 | Outpatient (CLI) | payer MEDICARE ==
--- NOTE | 2022-04-29 08:15 | MR ---
EXAMINATION TYPE: MR lumbar spine wo con DATE OF EXAM: 04/28/2022 COMPARISON: Prior lumbar MRI dated 05/27/2018 HISTORY: Lower back pain, BLE radiculopathy. History of surgeries. TECHNIQUE: Multiplanar, multisequence images of the lumbar spine were acquired without IV contrast. Extensive postop changes are again seen. There is stable alignment. Findings are similar to prior exa m. 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 Laminectomies at L4 and L5 again noted with dural e ctasia again seen. There is no evident spinal stenosis. Multilevel spondylosis with endplate discogen ic marrow signal changes present, loss of disc height signal present at L3-4, L2-3 and L1 to. L1-L2: Posterior extension endplate disc complex is again noted somewhat eccentric towards the right causing anterolateral mass effect on the thecal sac perhaps progressed somewhat in the interval. Face t arthropathy with hypertrophy ligamentum flavum causes posterior lateral mass effect on the thecal s ac greater on the right, there is a trefoil appearance of the thecal sac. No evident foraminal encroa chment. L2-L3: Posterior extension endplate disc complex causes anterior mass effect on the thecal sac. Circu mferential extension endplate disc complex encroaches on the inferior aspect of the foramen on the le ft greater than right, there is a trefoil appearance of the thecal sac due to facet arthropathy and h ypertrophic changes of the facets. L3-L4: Posterior broad-based disc bulge causes mild anterior mass effect on the thecal sac. There is facet arthropathy with hypertrophy ligamentum flavum causing some posterior lateral mass effect on th e thecal sac. Circumferential extension endplate disc complex results in foraminal encroachment great er on the left, possible nerve sheaths diverticulum noted on the left, there is some increased T2 sig nal extending towards the left neural foramen the level of the nerve root. L4-L5: Normal disc appearance without desiccation. No herniation, protrusion or disc bulging. No ca nal stenosis is present. Foramina are patent bilaterally. L5-S1: Increased signal at the level of the disc likely due to to patient's fusion is again noted, no significant foraminal encroachment, no disc herniation. Probable nerve sheath diverticula again seen , there is multilevel cystic formation at the level of the sacrum along the spinal canal, there may b e some nerve root compression of the S2 nerve roots due to the dural ectasia distally, multicystic ap pearance within the spinal canal. Lumbar segments are intact. No paraspinal masses are identified. Conus medullaris has a normal appe arance. IMPRESSION: Postop changes as described. Degenerative disc disease, facet arthropathy, foraminal encroachment. In determinate multifocal cystic appearance distally within the spinal canal as described, correlate for 2 radiculopathies.
== END | disposition home or self-care (01) ==
LOC: RADMRIMAIN 16:36
PROVIDERS: ATTEND Orthopaedic Surgery Orthopaedic Surgery of the Spine
DX: M51.16 Intervertebral disc disorders with radiculopathy, lumbar region (principal)
CPT/HCPCS: 72148

== ENCOUNTER → 2023-04-01 | Outpatient (CLI) | payer MEDICARE ==
--- NOTE | 2023-04-01 12:35 | MM ---
Reason for Exam: Screening (asymptomatic). Last screening mammogram was performed 12 month(s) ago. Patient History: Menarche at age 13. First Full-Term at age 23. Postmenopausal. Estrogen for 8 years from age 50 until age 58. 1997, Benign Excisional Biopsy on the right side. 10/28/2006, Bilateral Implants. 2006, Bilateral Implants. Risk Values: Shatnel 5 year model risk: 1.7%. NCI Lifetime model risk: 7.1%. Prior Study Comparison: 12/05/2019 Bilateral Screening Mammogram, [facility]. 03/25/2021 Bilateral Diagnostic Mammogram, [facility]. 03/31/2022 Bilateral MG 3D screen mammo imp/cad., [facility]. Tissue Density: The breast tissue is heterogeneously dense. This may lower the sensitivity of mammography. Findings: Analyzed By CAD. Breast implants bilaterally. No finding to correlate patient's left nipple tenderness. There is no suspicious group of microcalcifications or new suspicious mass in either breast. Overall Assessment: Incomplete: need additional imaging evaluation, BI-RAD 0 Management: Diagnostic Breast Ultrasound of the left breast. Ultrasound imaging for patient's left nipple tenderness. [facility] will attempt to contact patient to return for supplemental views and ultrasound if indicated. Patient should continue monthly self-breast exams. A clinical breast exam by your physician is recommended on an annual basis. This exam should not preclude additional follow-up of suspicious palpable abnormalities. Note on Shantel scores and lifetime risk: 1. A Shantel score greater than 3% is considered moderate risk. If this is the case, consider specialist referral to assess eligibility for a risk reducing agent. 2. If overall lifetime risk for the development of breast cancer is 20% or higher, the patient may qualify for future screening with alternating mammogram and breast MRI. Electronically signed and approved by: Srinivasa Grajeda DO
== END | disposition home or self-care (01) ==
LOC: RADMAMWWP 11:03
PROVIDERS: ATTEND Obstetrics & Gynecology
DX: Z12.31 Encounter for screening mammogram for malignant neoplasm of breast (principal); Z78.0 Asymptomatic menopausal state
CPT/HCPCS: 77063; 77067

== ENCOUNTER → 2023-04-08 | Outpatient (CLI) | payer MEDICARE ==
--- NOTE | 2023-04-08 13:36 | USB ---
Reason for Exam: Clinical finding. Patient History: Menarche at age 13. First Full-Term at age 23. Postmenopausal. Estrogen for 8 years from age 50 until age 58. 1997, Benign Excisional Biopsy on the right side. 10/28/2006, Bilateral Implants. 2006, Bilateral Implants. Risk Values: Shantel 5 year model risk: 1.7%. NCI Lifetime model risk: 7.1%. Technique: Method: Targeted. Prior Study Comparison: 03/25/2021 Bilateral Diagnostic Mammogram, [facility]. 03/31/2022 Bilateral MG 3D screen mammo imp/cad., [facility]. 04/01/2023 Bilateral MG 3D screen mammo imp/cad., [facility]. Findings: The axilla of the left breast and the retroareolar of the left breast were scanned. Targeted ultrasound subareolar and periareolar left breast for nipple tenderness. Additional scanning of the axilla. There is dense tissue present throughout. Underlying breast implant is noted. No solid or cystic lesion or axillary lymphadenopathy. No duct ectasia.. Overall Assessment: Benign, BI-RAD 2 Management: Screening Mammogram of both breasts in 1 year. Further clinical management of patient's left nipple tenderness. Patient should continue monthly self breast exams. These results should not preclude additional follow-up of suspicious palpable abnormalities. Results were given to the patient verbally at the time of exam. Electronically signed and approved by: Johann Naik M.D. Radiologist
== END | disposition home or self-care (01) ==
LOC: RADUSWWP 12:59
PROVIDERS: ATTEND Obstetrics & Gynecology
DX: R92.8 Other abnormal and inconclusive findings on diagnostic imaging of breast (principal); Z78.0 Asymptomatic menopausal state

== ENCOUNTER → 2023-08-09 | Outpatient (CLI) | payer MEDICARE ==
--- NOTE | 2023-08-09 15:05 | MR ---
EXAMINATION TYPE: MR cervical spine wo con DATE OF EXAM: 08/09/2023 COMPARISON: MR cervical spine 11/04/2022, 03/02/2022 HISTORY: Neck pain and burning feeling back of neck, Headaches from back of neck up into head, tingli ng and weakness bilat arms, Hx neck surgery December 2022 TECHNIQUE: Multiplanar, multisequence images of the cervical spine were acquired without contrast. FINDINGS: Cervical segments are intact. Postsurgical changes are major cervical fusion involving C3-C6. Straig htening of the normal cervical lordosis. No spondylolisthesis. Cervical spinal cord is of normal sign al. Craniovertebral junction relationships are within normal limits. No significant prevertebral so ft tissue swelling or edema. Multilevel disc desiccation. C2-C3: No disc bulge/herniation or protrusion. No Canal stenosis. Foramina are patent bilaterally. C3-C4: No disc herniation or protrusion. Right paracentral posterior disc osteophyte complex without significant central canal stenosis. Uncovertebral joint hypertrophy with moderate right neural forami nal stenosis. The left neural foramen is patent. C4-C5: No disc bulge/herniation or protrusion. Posterior disc osteophyte complex without significant central canal stenosis. Uncovertebral joint hypertrophy with mild right neural foraminal stenosis. Le ft neural foramen is patent. C5-C6: No disc bulge/herniation or protrusion. Posterior disc osteophyte complex with mild narrowing of the central canal. Uncovertebral joint hypertrophy with severe right neural foraminal stenosis. Th e left neural foramen is patent. C6-C7: No disc bulge/herniation or protrusion. No Canal stenosis. Uncovertebral joint hypertrophy wi th mild bilateral neural foraminal stenosis. C7-T1: No disc bulge/herniation or protrusion. No Canal stenosis. Foramina are patent bilaterally. IMPRESSION: 1. Postsurgical changes from ACDF C3-C6. 2. Mild multilevel degenerative disc disease most pronounced at C5-C6 with mild narrowing of the vern tral canal. Multilevel uncovertebral joint hypertrophy as described above.
== END | disposition home or self-care (01) ==
LOC: RADMRIMAIN 13:47
PROVIDERS: ATTEND Neurological Surgery
DX: M50.122 Cervical disc disorder at C5-C6 level with radiculopathy (principal); M47.22 Other spondylosis with radiculopathy, cervical region; Z98.890 Other specified postprocedural states
CPT/HCPCS: 72141

== ENCOUNTER → 2024-04-12 | Outpatient (CLI) | payer MEDICARE ==
--- NOTE | 2024-04-17 09:13 | MM ---
Reason for Exam: Hx of breast augmentation, asymptomatic. Last screening mammogram was performed 12 month(s) ago. Patient History: Menarche at age 13. First Full-Term at age 23. Postmenopausal. Estrogen for 8 years from age 50 until age 58. 1997, Benign Excisional Biopsy on the right side. 10/28/2006, Bilateral Implants. 2006, Bilateral Implants. Risk Values: Shantel 5 year model risk: 1.7%. NCI Lifetime model risk: 6.9%. Prior Study Comparison: 03/25/2021 Bilateral Diagnostic Mammogram, [facility]. 03/31/2022 Bilateral MG 3D screen mammo imp/cad., [facility]. 04/01/2023 Bilateral MG 3D screen mammo imp/cad., [facility]. Tissue Density: The breasts are extremely dense, which lowers the sensitivity of mammography. Findings: Analyzed By CAD. There is no suspicious group of microcalcifications or new suspicious mass in either breast. Bilateral breast implants in place. Overall Assessment: Benign, BI-RAD 2 Management: Screening Mammogram of both breasts in 1 year. . Patient should continue monthly self-breast exams. A clinical breast exam by your physician is recommended on an annual basis. This exam should not preclude additional follow-up of suspicious palpable abnormalities. Note on Shantel scores and lifetime risk: 1. A Shantel score greater than 3% is considered moderate risk. If this is the case, consider specialist referral to assess eligibility for a risk reducing agent. 2. If overall lifetime risk for the development of breast cancer is 20% or higher, the patient may qualify for future screening with alternating mammogram and breast MRI. Electronically signed and approved by: John Mckeon M.D. Radiologis
== END | disposition home or self-care (01) ==
LOC: RADMAMWWP 13:03
PROVIDERS: ATTEND Obstetrics & Gynecology
DX: Z12.31 Encounter for screening mammogram for malignant neoplasm of breast (principal); R92.343 Mammographic extreme density, bilateral breasts; Z78.0 Asymptomatic menopausal state
CPT/HCPCS: 77063; 77067

== ENCOUNTER → 2025-04-24 | Outpatient (CLI) | payer MEDICARE ==
--- NOTE | 2025-04-24 18:22 | MM ---
Reason for Exam: Screening (asymptomatic). Last screening mammogram was performed 12 month(s) ago. Patient History: Menarche at age 13. First Full-Term at age 23. Postmenopausal. Estrogen for 8 years from age 50 until age 58. 1997, Benign Excisional Biopsy on the right side. 10/28/2006, Bilateral Implants. 2006, Bilateral Implants. Risk Values: Shantel 5 year model risk: 1.8%. NCI Lifetime model risk: 6.6%. Prior Study Comparison: 03/31/2022 Bilateral MG 3D screen mammo imp/cad., [facility]. 04/01/2023 Bilateral MG 3D screen mammo imp/cad., [facility]. 04/12/2024 Bilateral MG 3D screen mammo imp/cad., [facility]. Tissue Density: The breasts are heterogeneously dense, which may obscure small masses. Findings: Analyzed By CAD. Bilateral retropectoral saline implants. Nodular area of asymmetric density medial anterior left breast particularly on the CC view. This area incompletely disperses on 3-D images. It may represent superimposition shadow but further evaluation is recommended. There is no suspicious group of microcalcifications or new suspicious mass in either breast. Overall Assessment: Incomplete: need additional imaging evaluation, BI-RAD 0 Management: Special View Mammogram of the left breast. [facility] will attempt to contact patient to return for supplemental views and ultrasound if indicated. [facility], , 04/24/2025 6:20 PM. Electronically signed and approved by: Johann Naik M.D. Radiologist
== END | disposition home or self-care (01) ==
LOC: RADMAMWWP 16:27
PROVIDERS: ATTEND Obstetrics & Gynecology
DX: Z12.31 Encounter for screening mammogram for malignant neoplasm of breast (principal); R92.333 Mammographic heterogeneous density, bilateral breasts; Z78.0 Asymptomatic menopausal state; Z98.82 Breast implant status
CPT/HCPCS: 77063; 77067